=== PATIENT | female | born 1950 | race Asian ===

== ENCOUNTER 2022-06-22 07:59 | Day surgery (SDC) | payer OTHER ==
[2022-06-16 15:17] VITALS: BMI 26.1
[2022-06-22 08:22] VITALS: RESP 18
[2022-06-22 09:56] VITALS: TEMP 97.8
[2022-06-22 10:11] VITALS: BP 90/50; PULSE 75
== END 2022-06-22 10:41 | disposition home or self-care (01) ==
LOC: FASU-ENDO 07:59
PROVIDERS: ATTEND Internal Medicine Gastroenterology
PROC: 0DBN8ZX Excision of Sigmoid Colon, Via Natural or Artificial Opening Endoscopic, Diagnostic (ICD-10-PCS; principal; 2022-06-22 09:15)
DX: Z12.11 Encounter for screening for malignant neoplasm of colon (principal); D12.7 Benign neoplasm of rectosigmoid junction; K57.30 Diverticulosis of large intestine without perforation or abscess without bleeding; K64.1 Second degree hemorrhoids; K64.8 Other hemorrhoids
CPT/HCPCS: 88305-TC